=== PATIENT | female | born 1995 | race Two or more races ===

== ENCOUNTER 2022-07-16 00:44 | Emergency (ER) | payer MEDICAID ==
[2022-07-16] MEDS ORDERED: Sodium Chloride 0.9% 10 ML Syringe FLUSH PRN (00:56)
[2022-07-16] MEDS ORDERED: Ondansetron 4 MG/2 ML SDV IVPUSH ONE (00:56)
[2022-07-16] MEDS ORDERED: LORazepam 2 MG/ML SDV IVPUSH ONE ×2 (00:56→01:35)
[2022-07-16] MEDS ORDERED: Haloperidol Lactate 5 MG/ML SDV IM ONE (00:57)
[2022-07-16] MEDS ORDERED: Sodium Chloride 0.9% 1,000 ML IV SCH (01:00)
[2022-07-16 01:18] LABS: ESTIMATED GFR 90 mL/min (>60)
[2022-07-16] MEDS ORDERED: Haloperidol Lactate 5 MG/ML SDV IV ONE (01:35)
== END 2022-07-16 09:43 | disposition home or self-care (01) ==
LOC: FB.ED 00:44
DX: R45.1 Restlessness and agitation (principal); F19.129 Other psychoactive substance abuse with intoxication, unspecified; Z88.1 Allergy status to other antibiotic agents
CPT/HCPCS: 36415; 80053; 80307; 85025; 96361; 96372; 96374; 96375; 96376; 99285; 99285-25; J1630; J2060; J2405; J7030